=== PATIENT | male | born 1995 | race Caucasian/White ===

== ENCOUNTER 2017-01-30 13:53 | Inpatient (IN) | payer OTHER ==
[2017-01-30 21:59] VITALS: BMI 27.3
[2017-01-30] MEDS ORDERED: diazePAM 5 MG TABLET PO SCH (22:00)
--- NOTE | 2017-01-30 22:50 | HP ---
COWS - Scale Resting Pulse: 0= [place] 80 or Below Sweatin= Chills/Flushing Restless Observation: 3= Extraneous Movement Pupil Size: 0= Normal to Room Light Bone or Joint Aches: 2= Severe Diffuse Aches Runny Nose/ Eye Tearin= None GI Upset > 30mins: 1= Stomach Cramp Tremor Observation: 2= Slight Tremor Visible Yawning Observation: 0= None Anxiety or Irritability: 4=Extreme Anxiety Goose Flesh Skin: 0=Smooth Skin COWS Score: 13 Admission ROS [facility] Chief Complaint: Heroin withdrawal Allergies/Adverse Reactions: Allergies Allergy/AdvReac Type Severity Reaction Status Date / Time Penicillins Allergy Severe Verified 09/04/15 10:11 History of Present Illness: 21 years old male with hx of heroin, cocaine and benzo dependence admitted for detox. Patient has been in previous detox in 09/2015. Denies significant period of sobriety. Exam Limitations: No Limitations - Ebola screening Have you traveled outside of the country in the last 21 days: No Have you had contact with anyone from an Ebola affected area: No Have you been sick,other than usual withdrawal symptoms: No Do you have a fever: No - Review of Systems Constitutional: Chills, Loss of Appetite, Changes in sleep EENT: reports: No Symptoms Reported Respiratory: reports: No Symptoms reported Cardiac: reports: No Symptoms Reported GI: reports: No Symptoms Reported : reports: No Symptoms Reported Musculoskeletal: reports: Joint Stiffness (Left hand injection site) Integumentary: reports: Flushing Neuro: reports: No Symptoms reported Endocrine: reports: No Symptoms Reported Hematology: reports: No Symptoms Reported Psychiatric: reports: Orientated x3, Anxious Other Systems: Reviewed and Negative Patient History - Patient Medical History Hx Anemia: No Hx Asthma: No Hx Chronic Obstructive Pulmonary Disease (COPD): No Hx Cancer: No Hx Cardiac Disorders: No Hx Congestive Heart Failure: No Hx Hypertension: No Hx Hypercholesterolemia: No Hx Pacemaker: No HX Cerebrovascular Accident: No Hx Seizures: No Hx Dementia: No Hx Diabetes: No Hx Gastrointestinal Disorders: No Hx Liver Disease: No Hx Genitourinary Disorders: No Hx Sexually Transmitted Disorders: No Hx Renal Disease (ESRD): No Hx Thyroid Disease: No Hx Human Immunodeficiency Virus (HIV): No (Denies) Hx Hepatitis C: No Hx Depression: No Hx Suicide Attempt: No Hx Bipolar Disorder: No Hx Schizophrenia: No - Patient Surgical History Past Surgical History: No - PPD History Date: 09/06/15 PPD to be Administered?: Yes - Smoking Cessation Smoking history: Current every day smoker Have you smoked in the past 12 months: Yes Aproximately how many cigarettes per day: 10 Cigars Per Day: 0 Hx Chewing Tobacco Use: No Initiated information on smoking cessation: Yes 'Breaking Loose' booklet given: 01/30/17 - Substance & Tx. History Hx Alcohol Use: No Hx Substance Use: Yes (Heroine, Xanax, Cocaine) Substance Use Type: Cocaine, Heroin Hx Substance Use Treatment: Yes ([facility] 09/2015) Family Disease History - Family Disease History Family Disease History: CA: Mother (Abdominal Ca), Other: Father (ALS) Admission Physical Exam [facility] - Vital Signs Vital Signs: Vital Signs - 24 hr 01/30/17 21:57 Temperature 99.6 F Pulse Rate 76 Respiratory 18 Rate Blood Pressure 108/58 - Physical General Appearance: Yes: Appropriately Dressed, Moderate Distress HEENTM: Yes: EOMI, Normal Voice, GINO Respiratory: Yes: Lungs Clear, Normal Breath Sounds, No Respiratory Distress Neck: Yes: Supple Breast: Yes: Breast Exam Deferred Cardiology: Yes: Regular Rhythm, Regular Rate, S1, S2 Abdominal: Yes: Normal Bowel Sounds, Flat, Soft Genitourinary: Yes: Within Normal Limits Back: Yes: Normal Inspection Musculoskeletal: Yes: full range of Motion, Joint Stiffness, Muscle weakness Extremities: Yes: Tremors Neurological: Yes: Fully Oriented, Alert, Normal Response Integumentary: Yes: Warm Lymphatic: Yes: Within Normal Limits - Diagnostic (1) Anxiety Current Visit: Yes Status: Acute (2) Uncomplicated sedative, hypnotic or anxiolytic withdrawal Current Visit: Yes Status: Acute (3) Nicotine dependence Current Visit: Yes Status: Acute Qualifiers: Nicotine product type: cigarettes Substance use status: uncomplicated Qualified Code(s): F17.210 - Nicotine dependence, cigarettes, uncomplicated; F17.210 - Nicotine dependence, cigarettes, uncomplicated Cleared for Admission S - Detox or Rehab [facility] Level of Care: Medically Managed Detox Regimen/Protocol: Methadone/Valium S Breath Alcohol Content Breath Alcohol Content: 0 Urine Drug Screen - Results Drug Screen Negative: No Urine Drug Screen Results: TRISTIAN-Cocaine, OPI-Opiates, BZO-Benzodiazepines
[2017-01-30] MEDS ORDERED: METHADONE HCL 10 MG TABLET (FOR DETOX USE ONLY) PO ONE ×2 (23:00→23:07)
[2017-01-30] MEDS ORDERED: diazePAM 5 MG TABLET PO PRN (23:07)
[2017-01-30] MEDS ORDERED: diazePAM 5 MG TABLET PO ONE (23:07)
[2017-01-30] MEDS ORDERED: IBUPROFEN 400 MG TABLET (FP) PO PRN (23:15)
[2017-01-30] MEDS ORDERED: MENTHOL/PHENOL 1 EACH UD MM PRN (23:15)
[2017-01-30] MEDS ORDERED: MAGNESIUM HYDROX 2400MG/30ML ORAL SUSPENSION 30 ML CUP PO PRN (23:15)
[2017-01-30] MEDS ORDERED: ACETAMINOPHEN 325 MG TABLET (FP) PO PRN (23:15)
[2017-01-30] MEDS ORDERED: LOPERAMIDE HCL 2 MG CAPSULE PO PRN (23:15)
[2017-01-30] MEDS ORDERED: P-EPHED 60MG/TRIPROLIDI 2.5MG TABLET PO PRN (23:15)
[2017-01-30] MEDS ORDERED: MAGNESIUM CITRATE 300 ML BOTTLE PO PRN (23:15)
[2017-01-30] MEDS ORDERED: guaiFENesin/D-METHORPHAN HB 10 ML UNIT-DOSE CUPS PO PRN (23:15)
[2017-01-30] MEDS ORDERED: MAG HYDROX/AL HYDROX/SIMETH 30 ML UNIT-DOSE CUP PO PRN (23:15)
[2017-01-31] MEDS ORDERED: diazePAM 5 MG TABLET PO ONE (01:26)
[2017-01-31] MEDS ORDERED: METHADONE HCL 10 MG TABLET (FOR DETOX USE ONLY) PO ONE ×3 (01:26→23:00)
[2017-01-31] MEDS: diazePAM 5 MG TABLET PO SCH ×3 (06:26→22:11)
[2017-01-31 09:48] LABS: MCHC 33.1 g/dl (32.0-35.9); MEAN CELL VOLUME 87.5 fl (80-96); MEAN PLT VOLUME 10.2 fl (7.5-11.1); PLATELET COUNT 173 K/MM3 (134-434); RDW 14.2 % (11.9-15.9); WHITE BLOOD COUNT 6.7 K/mm3 (4.0-10.0)
[2017-01-31] MEDS ORDERED: METHADONE HCL 10 MG TABLET (FOR DETOX USE ONLY) PO SCH (10:00)
[2017-01-31] MEDS: diazePAM 5 MG TABLET PO PRN ×2 (10:07→17:46)
[2017-01-31] MEDS: PRENATAL VITAMINS W/ FOLIC ACID TABLET (FP) PO SCH (10:07)
[2017-01-31 10:15] LABS: ALBUMIN 3.6 g/dl (3.4-5.0); ALK PHOS 81 U/L (45-117); ANION GAP 8 (8-16); BILIRUBIN,TOTAL 0.3 mg/dL (0.2-1.0); CALCIUM 8.2 mg/dL (8.5-10.1); CO2 28 mmol/L (21-32); CREATININE 0.9 mg/dL (0.7-1.3); GLUCOSE,RANDOM 71 mg/dL (74-106); SGOT/AST 12 U/L (15-37); SGPT/ALT 20 U/L (12-78); TOT PROT 6.8 g/dl (6.4-8.2)
[2017-01-31 10:25] LABS: HIV 1 & 2 AB NEGATIVE
[2017-01-31 10:26] LABS: HIV 1 AGp24 NEGATIVE
--- NOTE | 2017-01-31 10:31 | PN ---
[facility] CIWA - CIWA Score Nausea/Vomitin-No Nausea/No Vomiting Muscle Tremors: 4-Moderate,w/Arms Extend Anxiety: 4-Mod. Anxious/Guarded Agitation: 4-Moderately Restless Paroxysmal Sweats: 1-Minimal Palms Moist Orientation: 0-Oriented Tacttile Disturbances: 3-Moderate Itch/Numb/Burn Auditory Disturbances: 0-None Visual Disturbances: 0-None Headache: 0-None Present CIWA-Ar Total Score: 16 S COWS - Scale Resting Pulse: 0= [place] 80 or Below Sweatin= No chills or Flushing Restless Observation: 3= Extraneous Movement Pupil Size: 0= Normal to Room Light Bone or Joint Aches: 4=Acute Joint/Muscle Pain Runny Nose/ Eye Tearin= None GI Upset > 30mins: 0= None Tremor Observation of Outstretched Hands: 1= Tremor [place], Not Seen Yawning Observation: 1= 1-2x During Session Anxiety or Irritability: 2=Irritable/Anxious Goose Flesh Skin: 0=Smooth Skin COWS Score: 11 [facility] Progress Note (SOAP) Subjective: ANXIETY,SWEATS,ALERT O X 3. OOB ABOUT IN THE UNIT. Objective: 01/31/17 10:29 Vital Signs 01/31/17 01/31/17 01/31/17 03:36 06:00 09:19 Temperature 96.6 F L 96.8 F L Pulse Rate 70 69 Respiratory 18 18 18 Rate Blood Pressure 101/49 99/63 Laboratory Last Values WBC 6.7 K/mm3 (4.0-10.0) 01/31/17 07:00 RBC 4.85 M/mm3 (4.00-5.60) 01/31/17 07:00 Hgb 14.1 GM/dL (11.7-16.9) 01/31/17 07:00 Hct 42.5 % (35.4-49) 01/31/17 07:00 MCV 87.5 fl (80-96) 01/31/17 07:00 MCH 29.0 pg (25.7-33.7) 01/31/17 07:00 MCHC 33.1 g/dl (32.0-35.9) 01/31/17 07:00 RDW 14.2 % (11.9-15.9) 01/31/17 07:00 Plt Count 173 K/MM3 (134-434) 01/31/17 07:00 MPV 10.2 fl (7.5-11.1) 01/31/17 07:00 RPR Titer Nonreactive (NONREACTIVE) 01/31/17 07:00 HIV 1&2 Antibody Screen Negative 01/31/17 07:00 HIV P24 Antigen Negative 01/31/17 07:00 Assessment: 01/31/17 10:30 WITHDRAWAL SX Plan: CONTINUE DETOX INCREASE PO FLUIDS.
[2017-01-31] MEDS ORDERED: FLU VACCINE QUAD 60 MCG/0.5 ML (MDV 17-18) IM ONE (12:00)
--- NOTE | 2017-01-31 13:43 | CONSULT ---
[facility] Psychiatric Consult - Data Date of interview: 01/31/17 Admission source: [facility] Identifying data: Second admission to [facility] for this 21 y/o male seeking detox treatment on for heroin,cocaine and benzodiazepine dependence.Patient is single without children,unemployed,homeless and deprived of financial assistance. Substance Abuse History: Confirmed by patient in this session. Smoking Cessation. Smoking history: Current every day smoker. Have you smoked in the past 12 months: Yes. Aproximately how many cigarettes per day: 10. Cigars Per Day: 0. Hx Chewing Tobacco Use: No. Initiated information on smoking cessation : Yes. 'Breaking Loose' booklet given: 01/30/17. - Substance & Tx. History. Hx Alcohol Use: No. Hx Substance Use: Yes (Heroine, Xanax, Cocaine). Substance Use Type: Cocaine, Heroin. Hx Substance Use Treatment: Yes ([facility] 2015) Medical History: Patient endorses good general health. Psychiatric History: Patient denies. Physical/Sexual Abuse/Trauma History: Denies. Additional Comment: Urine Drug Screen Results: TRISTIAN-Cocaine, OPI-Opiates, BZO- Benzodiazepines.Noted. Mental Status Exam - Mental Status Exam Alert and Oriented to: Time, Place, Person Cognitive Function: Good Patient Appearance: Well Groomed Mood: Hopeful, Euthymic Affect: Appropriate, Normal Range Patient Behavior: Fatigued, Cooperative Speech Pattern: Clear ([place]-speaking) Voice Loudness: Normal Thought Process: Intact, Goal Oriented Thought Disorder: Not Present Hallucinations: Denies Suicidal Ideation: Denies Homicidal Ideation: Denies Insight/Judgement: Poor Sleep: Well Appetite: Good Muscle strength/Tone: Normal Gait/Station: Normal Psychiatric Findings - Problem List ([place] 1, 2,3) (1) Opioid dependence with withdrawal Current Visit: Yes Status: Acute (2) Uncomplicated sedative, hypnotic or anxiolytic withdrawal Current Visit: Yes Status: Acute (3) Nicotine dependence Current Visit: Yes Status: Acute Qualifiers: Nicotine product type: cigarettes Substance use status: uncomplicated Qualified Code(s): F17.210 - Nicotine dependence, cigarettes, uncomplicated; F17.210 - Nicotine dependence, cigarettes, uncomplicated (4) Cocaine dependence Current Visit: Yes Status: Acute - Initial Treatment Plan Initial Treatment Plan: Psychoeducation.Detoxification.Observation.
[2017-01-31 16:50] LABS: URINE APPEARANCE SLCLOUDY; URINE BILIRUBIN NEGATIVE (NEGATIVE); URINE BLOOD NEGATIVE (NEGATIVE); URINE COLOR DKYELLOW; URINE GLUCOSE (UA) NEGATIVE (NEGATIVE); URINE KETONE NEGATIVE (NEGATIVE); URINE NITRITE NEGATIVE (NEGATIVE); URINE PROTEIN NEGATIVE (NEGATIVE); URINE UROBILINOGEN 4.0 E.U/dl mg/dL (0.2-1.0)
[2017-01-31 18:18] LABS: URINE LEUK ESTERASE Negative (NEGATIVE)
[2017-01-31] MEDS: THIAMINE HCL 100 MG TABLET (FP) PO SCH (22:11)
[2017-01-31] MEDS: diphenhydrAMINE HCL 50 MG CAPSULE PO PRN (23:37)
[2017-02-01] MEDS: diazePAM 5 MG TABLET PO SCH ×3 (05:26→22:14)
[2017-02-01] MEDS ORDERED: diazePAM 5 MG TABLET PO SCH (10:00)
[2017-02-01] MEDS ORDERED: METHADONE HCL 10 MG TABLET (FOR DETOX USE ONLY) PO SCH (10:00)
[2017-02-01] MEDS ORDERED: METHADONE HCL 5 MG TABLET (FOR DETOX USE ONLY) PO SCH (10:00)
[2017-02-01] MEDS: PRENATAL VITAMINS W/ FOLIC ACID TABLET (FP) PO SCH (10:10)
--- NOTE | 2017-02-01 10:32 | PN ---
[facility] CIWA - CIWA Score Nausea/Vomitin-No Nausea/No Vomiting Muscle Tremors: 4-Moderate,w/Arms Extend Anxiety: 4-Mod. Anxious/Guarded Agitation: 4-Moderately Restless Paroxysmal Sweats: 1-Minimal Palms Moist Orientation: 0-Oriented Tacttile Disturbances: 3-Moderate Itch/Numb/Burn Auditory Disturbances: 0-None Visual Disturbances: 0-None Headache: 0-None Present CIWA-Ar Total Score: 16 S COWS - Scale Resting Pulse: 0= [place] 80 or Below Sweatin= Chills/Flushing Restless Observation: 3= Extraneous Movement Pupil Size: 0= Normal to Room Light Bone or Joint Aches: 1= Mild Discomfort Runny Nose/ Eye Tearin= Runny Nose/Eyes GI Upset > 30mins: 1= Stomach Cramp Tremor Observation of Outstretched Hands: 2= Slight Tremor Visible Yawning Observation: 1= 1-2x During Session Anxiety or Irritability: 2=Irritable/Anxious Goose Flesh Skin: 0=Smooth Skin COWS Score: 13 S Progress Note (SOAP) Subjective: SLIGHT ANXIETY. ALERT O X 3. PT REFUSED METHADONE 20 MG PO THIS MORNING. Objective: 02/01/17 10:35 Vital Signs Temperature 96.2 F L 02/01/17 09:16 Pulse Rate 78 02/01/17 09:16 Respiratory Rate 18 02/01/17 09:16 Blood Pressure 97/54 02/01/17 09:16 O2 Sat by Pulse Oximetry (%) Laboratory Last Values WBC 6.7 K/mm3 (4.0-10.0) 01/31/17 07:00 RBC 4.85 M/mm3 (4.00-5.60) 01/31/17 07:00 Hgb 14.1 GM/dL (11.7-16.9) 01/31/17 07:00 Hct 42.5 % (35.4-49) 01/31/17 07:00 MCV 87.5 fl (80-96) 01/31/17 07:00 MCH 29.0 pg (25.7-33.7) 01/31/17 07:00 MCHC 33.1 g/dl (32.0-35.9) 01/31/17 07:00 RDW 14.2 % (11.9-15.9) 01/31/17 07:00 Plt Count 173 K/MM3 (134-434) 01/31/17 07:00 MPV 10.2 fl (7.5-11.1) 01/31/17 07:00 Sodium 142 mmol/L (136-145) 01/31/17 07:00 Potassium 3.9 mmol/L (3.5-5.1) 01/31/17 07:00 Chloride 106 mmol/L (98-107) 01/31/17 07:00 Carbon Dioxide 28 mmol/L (21-32) 01/31/17 07:00 Anion Gap 8 (8-16) 01/31/17 07:00 BUN 14 mg/dL (7-18) 01/31/17 07:00 Creatinine 0.9 mg/dL (0.7-1.3) 01/31/17 07:00 Creat Clearance w eGFR > 60 (>60) 01/31/17 07:00 Random Glucose 71 mg/dL (74-106) L 01/31/17 07:00 Calcium 8.2 mg/dL (8.5-10.1) L 01/31/17 07:00 Total Bilirubin 0.3 mg/dL (0.2-1.0) D 01/31/17 07:00 AST 12 U/L (15-37) L 01/31/17 07:00 ALT 20 U/L (12-78) 01/31/17 07:00 Alkaline Phosphatase 81 U/L (45-117) 01/31/17 07:00 Total Protein 6.8 g/dl (6.4-8.2) 01/31/17 07:00 Albumin 3.6 g/dl (3.4-5.0) 01/31/17 07:00 Urine Color Dkyellow 01/31/17 15:36 Urine Appearance Slcloudy 01/31/17 15:36 Urine pH 5.0 (5.0-8.0) 01/31/17 15:36 Ur Specific [place] 1.025 (1.005-1.025) 01/31/17 15:36 Urine Protein Negative (NEGATIVE) 01/31/17 15:36 Urine Glucose (UA) Negative (NEGATIVE) 01/31/17 15:36 Urine Ketones Negative (NEGATIVE) 01/31/17 15:36 Urine Blood Negative (NEGATIVE) 01/31/17 15:36 Urine Nitrite Negative (NEGATIVE) 01/31/17 15:36 Urine Bilirubin Negative (NEGATIVE) 01/31/17 15:36 Urine Urobilinogen 4.0 e.u/dl mg/dL (0.2-1.0) 01/31/17 15:36 Ur Leukocyte Esterase Negative (NEGATIVE) 01/31/17 15:36 RPR Titer Nonreactive (NONREACTIVE) 01/31/17 07:00 HIV 1&2 Antibody Screen Negative 01/31/17 07:00 HIV P24 Antigen Negative 01/31/17 07:00 Assessment: 02/01/17 10:35 MILD WITHDRAWAL SX Plan: CONTINUE DETOX MONITOR PT.
[2017-02-01] MEDS: diazePAM 5 MG TABLET PO PRN (18:48)
[2017-02-01] MEDS: THIAMINE HCL 100 MG TABLET (FP) PO SCH (22:14)
[2017-02-01] MEDS: diphenhydrAMINE HCL 50 MG CAPSULE PO PRN (22:15)
[2017-02-02] MEDS: diazePAM 5 MG TABLET PO PRN ×3 (01:42→17:34)
--- NOTE | 2017-02-02 10:07 | PN ---
S Progress Note (SOAP) Subjective: ROUNDED WITH PT IN BED. SLIGHTLY SLEEPY BUT REPORTS FATIGUE AND SAYS HE SLEPT WELL LAST NIGHT. Objective: 02/02/17 10:07 Vital Signs Temperature 97.0 F L 02/02/17 09:38 Pulse Rate 85 02/02/17 09:38 Respiratory Rate 18 02/02/17 09:38 Blood Pressure 116/67 02/02/17 09:38 O2 Sat by Pulse Oximetry (%) Laboratory Last Values WBC 6.7 K/mm3 (4.0-10.0) 01/31/17 07:00 RBC 4.85 M/mm3 (4.00-5.60) 01/31/17 07:00 Hgb 14.1 GM/dL (11.7-16.9) 01/31/17 07:00 Hct 42.5 % (35.4-49) 01/31/17 07:00 MCV 87.5 fl (80-96) 01/31/17 07:00 MCH 29.0 pg (25.7-33.7) 01/31/17 07:00 MCHC 33.1 g/dl (32.0-35.9) 01/31/17 07:00 RDW 14.2 % (11.9-15.9) 01/31/17 07:00 Plt Count 173 K/MM3 (134-434) 01/31/17 07:00 MPV 10.2 fl (7.5-11.1) 01/31/17 07:00 Sodium 142 mmol/L (136-145) 01/31/17 07:00 Potassium 3.9 mmol/L (3.5-5.1) 01/31/17 07:00 Chloride 106 mmol/L (98-107) 01/31/17 07:00 Carbon Dioxide 28 mmol/L (21-32) 01/31/17 07:00 Anion Gap 8 (8-16) 01/31/17 07:00 BUN 14 mg/dL (7-18) 01/31/17 07:00 Creatinine 0.9 mg/dL (0.7-1.3) 01/31/17 07:00 Creat Clearance w eGFR > 60 (>60) 01/31/17 07:00 Random Glucose 71 mg/dL (74-106) L 01/31/17 07:00 Calcium 8.2 mg/dL (8.5-10.1) L 01/31/17 07:00 Total Bilirubin 0.3 mg/dL (0.2-1.0) D 01/31/17 07:00 AST 12 U/L (15-37) L 01/31/17 07:00 ALT 20 U/L (12-78) 01/31/17 07:00 Alkaline Phosphatase 81 U/L (45-117) 01/31/17 07:00 Total Protein 6.8 g/dl (6.4-8.2) 01/31/17 07:00 Albumin 3.6 g/dl (3.4-5.0) 01/31/17 07:00 Urine Color Dkyellow 01/31/17 15:36 Urine Appearance Slcloudy 01/31/17 15:36 Urine pH 5.0 (5.0-8.0) 01/31/17 15:36 Ur Specific [place] 1.025 (1.005-1.025) 01/31/17 15:36 Urine Protein Negative (NEGATIVE) 01/31/17 15:36 Urine Glucose (UA) Negative (NEGATIVE) 01/31/17 15:36 Urine Ketones Negative (NEGATIVE) 01/31/17 15:36 Urine Blood Negative (NEGATIVE) 01/31/17 15:36 Urine Nitrite Negative (NEGATIVE) 01/31/17 15:36 Urine Bilirubin Negative (NEGATIVE) 01/31/17 15:36 Urine Urobilinogen 4.0 e.u/dl mg/dL (0.2-1.0) 01/31/17 15:36 Ur Leukocyte Esterase Negative (NEGATIVE) 01/31/17 15:36 RPR Titer Nonreactive (NONREACTIVE) 01/31/17 07:00 HIV 1&2 Antibody Screen Negative 01/31/17 07:00 HIV P24 Antigen Negative 01/31/17 07:00 Assessment: 02/02/17 10:08 SLIGHT WITHDRAWAL SX Plan: CONTINUE DETOX
[2017-02-02] MEDS: diazePAM 5 MG TABLET PO SCH ×2 (10:16→22:23)
[2017-02-02] MEDS: METHADONE HCL 5 MG TABLET (FOR DETOX USE ONLY) PO SCH (10:16)
[2017-02-02] MEDS: PRENATAL VITAMINS W/ FOLIC ACID TABLET (FP) PO SCH (10:16)
--- NOTE | 2017-02-02 13:08 | EKG ---
Test Reason : Blood Pressure : / mmHG Vent. Rate : 059 BPM Atrial Rate : 059 BPM P-R Int : 192 ms QRS Dur : 096 ms QT Int : 396 ms P-R-T Axes : 068 042 049 degrees QTc Int : 392 ms SINUS BRADYCARDIA WITH MARKED SINUS ARRHYTHMIA OTHERWISE NORMAL ECG NO PREVIOUS ECGS AVAILABLE Confirmed by MIRANDA MONTEMAYOR, WILLI ([id number]) on 02/02/2017 1:08:25 PM Referred By: Confirmed By:WILLI JEAN MD
[2017-02-02] MEDS: diphenhydrAMINE HCL 50 MG CAPSULE PO PRN (22:23)
[2017-02-02] MEDS: THIAMINE HCL 100 MG TABLET (FP) PO SCH (22:23)
[2017-02-03] MEDS ORDERED: METHADONE HCL 10 MG TABLET (FOR DETOX USE ONLY) PO SCH (10:00)
[2017-02-03] MEDS ORDERED: diazePAM 5 MG TABLET PO SCH (10:00)
[2017-02-03] MEDS: diazePAM 5 MG TABLET PO SCH ×2 (10:22→22:12)
[2017-02-03] MEDS: METHADONE HCL 5 MG TABLET (FOR DETOX USE ONLY) PO SCH (10:22)
[2017-02-03] MEDS: PRENATAL VITAMINS W/ FOLIC ACID TABLET (FP) PO SCH (10:22)
--- NOTE | 2017-02-03 11:03 | PN ---
[facility] Progress Note (SOAP) Subjective: RECIEVED PT IN BED AND PT APPEARS VERY SLEEPY AND REPORTS TIREDNESS. OOB NEEDED. Objective: 02/03/17 11:03 Vital Signs Temperature 97.7 F 02/03/17 06:34 Pulse Rate 63 02/03/17 06:34 Respiratory Rate 18 02/03/17 06:34 Blood Pressure 106/48 02/03/17 06:34 O2 Sat by Pulse Oximetry (%) Laboratory Last Values WBC 6.7 K/mm3 (4.0-10.0) 01/31/17 07:00 RBC 4.85 M/mm3 (4.00-5.60) 01/31/17 07:00 Hgb 14.1 GM/dL (11.7-16.9) 01/31/17 07:00 Hct 42.5 % (35.4-49) 01/31/17 07:00 MCV 87.5 fl (80-96) 01/31/17 07:00 MCH 29.0 pg (25.7-33.7) 01/31/17 07:00 MCHC 33.1 g/dl (32.0-35.9) 01/31/17 07:00 RDW 14.2 % (11.9-15.9) 01/31/17 07:00 Plt Count 173 K/MM3 (134-434) 01/31/17 07:00 MPV 10.2 fl (7.5-11.1) 01/31/17 07:00 Sodium 142 mmol/L (136-145) 01/31/17 07:00 Potassium 3.9 mmol/L (3.5-5.1) 01/31/17 07:00 Chloride 106 mmol/L (98-107) 01/31/17 07:00 Carbon Dioxide 28 mmol/L (21-32) 01/31/17 07:00 Anion Gap 8 (8-16) 01/31/17 07:00 BUN 14 mg/dL (7-18) 01/31/17 07:00 Creatinine 0.9 mg/dL (0.7-1.3) 01/31/17 07:00 Creat Clearance w eGFR > 60 (>60) 01/31/17 07:00 Random Glucose 71 mg/dL (74-106) L 01/31/17 07:00 Calcium 8.2 mg/dL (8.5-10.1) L 01/31/17 07:00 Total Bilirubin 0.3 mg/dL (0.2-1.0) D 01/31/17 07:00 AST 12 U/L (15-37) L 01/31/17 07:00 ALT 20 U/L (12-78) 01/31/17 07:00 Alkaline Phosphatase 81 U/L (45-117) 01/31/17 07:00 Total Protein 6.8 g/dl (6.4-8.2) 01/31/17 07:00 Albumin 3.6 g/dl (3.4-5.0) 01/31/17 07:00 Urine Color Dkyellow 01/31/17 15:36 Urine Appearance Slcloudy 01/31/17 15:36 Urine pH 5.0 (5.0-8.0) 01/31/17 15:36 Ur Specific [place] 1.025 (1.005-1.025) 01/31/17 15:36 Urine Protein Negative (NEGATIVE) 01/31/17 15:36 Urine Glucose (UA) Negative (NEGATIVE) 01/31/17 15:36 Urine Ketones Negative (NEGATIVE) 01/31/17 15:36 Urine Blood Negative (NEGATIVE) 01/31/17 15:36 Urine Nitrite Negative (NEGATIVE) 01/31/17 15:36 Urine Bilirubin Negative (NEGATIVE) 01/31/17 15:36 Urine Urobilinogen 4.0 e.u/dl mg/dL (0.2-1.0) 01/31/17 15:36 Ur Leukocyte Esterase Negative (NEGATIVE) 01/31/17 15:36 RPR Titer Nonreactive (NONREACTIVE) 01/31/17 07:00 HIV 1&2 Antibody Screen Negative 01/31/17 07:00 HIV P24 Antigen Negative 01/31/17 07:00 Assessment: 02/03/17 11:03 WITHDRAWAL SX Plan: CONTINUE DETOX ENCOURAGED PT TO INCREASE PO FLUIDS.
[2017-02-03] MEDS ORDERED: hydrOXYzine PAMOATE 50 MG CAPSULE (FP) PO PRN (14:28)
--- NOTE | 2017-02-03 14:33 | PN ---
[facility] Progress Note Note: Psychiatry Attending's note : Seen for complaint of anxiety. Patient is visible on unit.Ambulatory. Apprehensive over discontinuation of diazepam. Mr Fagan is reassured.Agrees to take vistaril. Side effects/benefits discussed with the patient. Plan : Vistaril 50 mg po q 6 hours prn. Discussed with nursing staff.
[2017-02-03] MEDS: hydrOXYzine PAMOATE 50 MG CAPSULE (FP) PO PRN (20:25)
[2017-02-03] MEDS: THIAMINE HCL 100 MG TABLET (FP) PO SCH (22:11)
[2017-02-03] MEDS: diphenhydrAMINE HCL 50 MG CAPSULE PO PRN (22:13)
[2017-02-04] MEDS: hydrOXYzine PAMOATE 50 MG CAPSULE (FP) PO PRN ×5 (03:13→21:53)
[2017-02-04] MEDS ORDERED: METHADONE HCL 5 MG TABLET (FOR DETOX USE ONLY) PO SCH (06:00)
[2017-02-04] MEDS ORDERED: METHADONE HCL 10 MG TABLET (FOR DETOX USE ONLY) PO SCH (10:00)
[2017-02-04] MEDS ORDERED: diazePAM 5 MG TABLET PO SCH (10:00)
[2017-02-04] MEDS: PRENATAL VITAMINS W/ FOLIC ACID TABLET (FP) PO SCH (10:08)
--- NOTE | 2017-02-04 13:27 | PN ---
[facility] Progress Note (SOAP) Subjective: Sweating,restless Objective: 02/04/17 13:27 Vital Signs - 8 hr 02/04/17 02/04/17 06:00 09:26 Temperature 98.1 F 98.7 F Pulse Rate 59 L 64 Respiratory 18 18 Rate Blood Pressure 97/43 108/66 Laboratory Last Values WBC 6.7 K/mm3 (4.0-10.0) 01/31/17 07:00 RBC 4.85 M/mm3 (4.00-5.60) 01/31/17 07:00 Hgb 14.1 GM/dL (11.7-16.9) 01/31/17 07:00 Hct 42.5 % (35.4-49) 01/31/17 07:00 MCV 87.5 fl (80-96) 01/31/17 07:00 MCH 29.0 pg (25.7-33.7) 01/31/17 07:00 MCHC 33.1 g/dl (32.0-35.9) 01/31/17 07:00 RDW 14.2 % (11.9-15.9) 01/31/17 07:00 Plt Count 173 K/MM3 (134-434) 01/31/17 07:00 MPV 10.2 fl (7.5-11.1) 01/31/17 07:00 Sodium 142 mmol/L (136-145) 01/31/17 07:00 Potassium 3.9 mmol/L (3.5-5.1) 01/31/17 07:00 Chloride 106 mmol/L (98-107) 01/31/17 07:00 Carbon Dioxide 28 mmol/L (21-32) 01/31/17 07:00 Anion Gap 8 (8-16) 01/31/17 07:00 BUN 14 mg/dL (7-18) 01/31/17 07:00 Creatinine 0.9 mg/dL (0.7-1.3) 01/31/17 07:00 Creat Clearance w eGFR > 60 (>60) 01/31/17 07:00 Random Glucose 71 mg/dL (74-106) L 01/31/17 07:00 Calcium 8.2 mg/dL (8.5-10.1) L 01/31/17 07:00 Total Bilirubin 0.3 mg/dL (0.2-1.0) D 01/31/17 07:00 AST 12 U/L (15-37) L 01/31/17 07:00 ALT 20 U/L (12-78) 01/31/17 07:00 Alkaline Phosphatase 81 U/L (45-117) 01/31/17 07:00 Total Protein 6.8 g/dl (6.4-8.2) 01/31/17 07:00 Albumin 3.6 g/dl (3.4-5.0) 01/31/17 07:00 Urine Color Dkyellow 01/31/17 15:36 Urine Appearance Slcloudy 01/31/17 15:36 Urine pH 5.0 (5.0-8.0) 01/31/17 15:36 Ur Specific [place] 1.025 (1.005-1.025) 01/31/17 15:36 Urine Protein Negative (NEGATIVE) 01/31/17 15:36 Urine Glucose (UA) Negative (NEGATIVE) 01/31/17 15:36 Urine Ketones Negative (NEGATIVE) 01/31/17 15:36 Urine Blood Negative (NEGATIVE) 01/31/17 15:36 Urine Nitrite Negative (NEGATIVE) 01/31/17 15:36 Urine Bilirubin Negative (NEGATIVE) 01/31/17 15:36 Urine Urobilinogen 4.0 e.u/dl mg/dL (0.2-1.0) 01/31/17 15:36 Ur Leukocyte Esterase Negative (NEGATIVE) 01/31/17 15:36 RPR Titer Nonreactive (NONREACTIVE) 01/31/17 07:00 HIV 1&2 Antibody Screen Negative 01/31/17 07:00 HIV P24 Antigen Negative 01/31/17 07:00 labs noted Assessment: 02/04/17 13:27 Withdrawal sx. Plan: Continue detox
[2017-02-04] MEDS: THIAMINE HCL 100 MG TABLET (FP) PO SCH (21:53)
[2017-02-05] MEDS: hydrOXYzine PAMOATE 50 MG CAPSULE (FP) PO PRN ×2 (04:23→09:41)
[2017-02-05] MEDS ORDERED: METHADONE HCL 5 MG TABLET (FOR DETOX USE ONLY) PO SCH (06:00)
[2017-02-05 09:27] VITALS: BP 117/66; PULSE 77; TEMP 97.9
[2017-02-05] MEDS: PRENATAL VITAMINS W/ FOLIC ACID TABLET (FP) PO SCH (10:09)
--- NOTE | 2017-02-05 14:07 | DS ---
[facility] Detox Discharge Summary Admission Date: 01/31/17 Discharge Date: 02/05/17 - History Present History: Alcohol Dependence, Cocaine Dependence Pertinent Past History: Denies - Physical Exam Results Vital Signs: Vital Signs Temperature 97.9 F 02/05/17 09:27 Pulse Rate 77 02/05/17 09:27 Respiratory Rate 18 02/05/17 09:27 Blood Pressure 117/66 02/05/17 09:27 O2 Sat by Pulse Oximetry (%) Pertinent Admission Physical Exam Findings: Withdrawal symptoms Laboratory Tests 01/31/17 01/31/17 01/31/17 07:00 07:00 07:00 WBC 6.7 RBC 4.85 Hgb 14.1 Hct 42.5 MCV 87.5 MCH 29.0 MCHC 33.1 RDW 14.2 Plt Count 173 MPV 10.2 Sodium 142 Potassium 3.9 Chloride 106 Carbon Dioxide 28 Anion Gap 8 BUN 14 Creatinine 0.9 Creat Clearance w eGFR > 60 Random Glucose 71 L Calcium 8.2 L Total Bilirubin 0.3 D AST 12 L ALT 20 Alkaline Phosphatase 81 Total Protein 6.8 Albumin 3.6 Urine Color Urine Appearance Urine pH Ur Specific [place] Urine Protein Urine Glucose (UA) Urine Ketones Urine Blood Urine Nitrite Urine Bilirubin Urine Urobilinogen Ur Leukocyte Esterase RPR Titer Nonreactive HIV 1&2 Antibody Screen HIV P24 Antigen 01/31/17 01/31/17 07:00 15:36 WBC RBC Hgb Hct MCV MCH MCHC RDW Plt Count MPV Sodium Potassium Chloride Carbon Dioxide Anion Gap BUN Creatinine Creat Clearance w eGFR Random Glucose Calcium Total Bilirubin AST ALT Alkaline Phosphatase Total Protein Albumin Urine Color Dkyellow Urine Appearance Slcloudy Urine pH 5.0 Ur Specific [place] 1.025 Urine Protein Negative Urine Glucose (UA) Negative Urine Ketones Negative Urine Blood Negative Urine Nitrite Negative Urine Bilirubin Negative Urine Urobilinogen 4.0 e.u/dl Ur Leukocyte Esterase Negative RPR Titer HIV 1&2 Antibody Screen Negative HIV P24 Antigen Negative Labs noted - Treatment Hospital Course: Detox Protocol Followed, Detoxed Safely, Responded well, Discharged Condition Good - Medication Discharge Medications: Ambulatory Orders NK [No Known Home Medication] 09/04/15 - Diagnosis (1) Anxiety Status: Chronic (2) Cocaine dependence Status: Chronic (3) Nicotine dependence Status: Chronic Qualifiers: Nicotine product type: cigarettes Substance use status: uncomplicated Qualified Code(s): F17.210 - Nicotine dependence, cigarettes, uncomplicated; F17.210 - Nicotine dependence, cigarettes, uncomplicated (4) Opioid dependence with withdrawal Status: Chronic (5) Uncomplicated sedative, hypnotic or anxiolytic withdrawal Status: Acute - AMA Did Patient Leave Against Medical Advice: No (Follow up with your PCP in 1-2 weeks)
== END 2017-02-05 09:55 | disposition home or self-care (01) | DRG 773 ==
LOC: YASAS 13:53 → Y3N 01-31 00:06
PROVIDERS: ADMIT Internal Medicine; ATTEND Internal Medicine
PROC: HZ2ZZZZ Detoxification Services for Substance Abuse Treatment (ICD-10-PCS; principal; 2017-01-31)
DX: F11.23 Opioid dependence with withdrawal (principal); F13.230 Sedative, hypnotic or anxiolytic dependence with withdrawal, uncomplicated; F14.20 Cocaine dependence, uncomplicated; F17.210 Nicotine dependence, cigarettes, uncomplicated; F41.9 Anxiety disorder, unspecified
CPT/HCPCS: 36415; 80053; 81003; 85027; 86593; 87389; 93005; 93010

== ENCOUNTER 2019-02-11 09:32 | Inpatient (IN) | payer OTHER ==
[2019-02-11 09:50] VITALS: BMI 33.3
--- NOTE | 2019-02-11 10:13 | HP ---
COWS - Scale Resting Pulse: 2= [place] 101-120 Sweatin=Flushed/Facial Moisture Restless Observation: 1= Difficult to Sit Still Pupil Size: 1= Pupils >than Normal Bone or Joint Aches: 1= Mild Discomfort Runny Nose/ Eye Tearin= Nasal Congestion GI Upset > 30mins: 1= Stomach Cramp Tremor Observation: 1= Tremor [place], Not Seen Yawning Observation: 1= 1-2x During Session Anxiety or Irritability: 1=Feels Anxious/Irritable Goose Flesh Skin: 0=Smooth Skin (just used this morning 1 bag of heroin at 7: 30AM Is appropriate for detox) COWS Score: 12 CIWA Score - Admission Criteria OASAS Guidelines: Admission for Medically Managed Detox: Requires at least one of the followin. CIWA greater than 12 2. Seizures within the past 24 hours 3. Delirium tremens within the past 24 hours 4. Hallucinations within the past 24 hours 5. Acute intervention needed for co occurring medical disorder 6. Acute intervention needed for co occurring psychiatric disorder 7. Severe withdrawal that cannot be handled at a lower level of care (continued vomiting, continued diarrhea, abnormal vital signs) requiring intravenous medication and/or fluids 8. Admitting History and Physical - Admission Chief Complaint: " I want to get clean. I'm tired of using and being dependent. I now have a child and want to stop." History of Present Illness: 23 year male with opioid dependence in early withdrawals. He has been using since the age of 21 and now has progressed to 1 bundle of heroin intranasally, last used 7:30AM this morning. He did over dose 1 year ago requiring narcan and hospitalization. He does not carry any narcan. He has last here in detox ago more than one year ago. He relapsed almost immediately after. However, at that time he was using pills from the streets. He denies other substances of use: no cocaine, K2, amphetamines or marijuana All PCN+ PMH: None PSurg: ;None FHX: Mother alive in in good health, father from ALS 1 brother in good health 1 sister in good health. Psych: None Limitations to Obtaining History: No Limitations - Past Surgical History Past Surgical History: Yes: None - Advance Directives Advance Directives: No: Living Will, Health Care Proxy, DNR - Smoking History Smoking history: Current every day smoker Have you smoked in the past 12 months: Yes Aproximately how many cigarettes per day: 10 - Alcohol/Substance Use Hx Alcohol Use: No History of Substance Use: reports: Heroin Date of Last Use: 02/11/19 - Social History Usual Living Arrangement: Yes: With Spouse Do you think of yourself as: Straight/Heterosexual ADL: Independent History of Recent Travel: No Admission ROS [facility] - HPI Chief Complaint: " I want to get clean. I'm tired of using and being dependent. I now have a child and want to stop." Allergies/Adverse Reactions: Allergies Allergy/AdvReac Type Severity Reaction Status Date / Time Penicillins Allergy Severe Verified 02/11/19 09:42 History of Present Illness: 23 year male with opioid dependence in early withdrawals. He has been using since the age of 21 and now has progressed to 1 bundle of heroin intranasally, last used 7:30AM this morning. He did over dose 1 year ago requiring narcan and hospitalization. He does not carry any narcan. He has last here in detox ago more than one year ago. He relapsed almost immediately after. However, at that time he was using pills from the streets. He denies other substances of use: no cocaine, K2, amphetamines or marijuana All PCN+ PMH: None PSurg: ;None FHX: Mother alive in in good health, father from ALS 1 brother in good health 1 sister in good health. Psych: None - Ebola screening Have you traveled outside of the country in the last 21 days: No Have you had contact with anyone from an Ebola affected area: No Have you been sick,other than usual withdrawal symptoms: No Do you have a fever: No - Review of Systems Constitutional: Chills, Loss of Appetite EENT: reports: No Symptoms Reported Respiratory: reports: No Symptoms reported Cardiac: reports: No Symptoms Reported GI: reports: Abdominal cramping : reports: No Symptoms Reported Musculoskeletal: reports: Back Pain Integumentary: reports: No Symptoms Reported Neuro: reports: No Symptoms reported Endocrine: reports: No Symptoms Reported Hematology: reports: No Symptoms Reported Psychiatric: reports: No Sypmtoms Reported, Agitated, Anxious Other Systems: Reviewed and Negative Patient History - Patient Medical History Hx Anemia: No Hx Asthma: No Hx Chronic Obstructive Pulmonary Disease (COPD): No Hx Cancer: No Hx Cardiac Disorders: No Hx Congestive Heart Failure: No Hx Hypertension: No Hx Hypercholesterolemia: No Hx Pacemaker: No HX Cerebrovascular Accident: No Hx Seizures: No Hx Dementia: No Hx Diabetes: No Hx Gastrointestinal Disorders: No Hx Liver Disease: No Hx Genitourinary Disorders: No Hx Sexually Transmitted Disorders: No Hx Renal Disease (ESRD): No Hx Thyroid Disease: No Hx Human Immunodeficiency Virus (HIV): No (Denies) Hx Hepatitis C: No Hx Depression: No Hx Suicide Attempt: No Hx Bipolar Disorder: No Hx Schizophrenia: No - Patient Surgical History Past Surgical History: No - PPD History Previous Implant?: Yes Documented Results: Negative w/proof Implanted On Prior [facility] Admission?: Yes Date: 02/02/17 Results: negative PPD to be Administered?: Yes - Smoking Cessation Smoking history: Current every day smoker Have you smoked in the past 12 months: Yes Aproximately how many cigarettes per day: 10 Cigars Per Day: 0 Hx Chewing Tobacco Use: No Initiated information on smoking cessation: Yes 'Breaking Loose' booklet given: 02/11/19 - Substances abused Heroin Substance route: Inhalation Frequency: Daily Amount used: 1 bundle Age of first use: 21 Date of last use: 02/11/19 Admission Physical Exam [facility] - Vital Signs Vital Signs: Vital Signs - 24 hr 02/11/19 09:43 Temperature 97.3 F L Pulse Rate 72 Respiratory 18 Rate Blood Pressure 109/67 - Physical General Appearance: Yes: Mild Distress HEENTM: Yes: EOMI, Hearing grossly Normal, Normal ENT Inspection, Normocephalic , GINO, Pharynx Normal, Tm's normal Respiratory: Yes: Chest Non-Tender, Lungs Clear, Normal Breath Sounds, No Respiratory Distress, No Accessory Muscle Use Neck: Yes: No masses,lesions,Nodules, Supple, Trachea in good position Breast: Yes: Within Normal Limits Cardiology: Yes: Regular Rhythm, S1, S2, Tachycardia Abdominal: Yes: Non Tender, Flat, Soft, Increased Bowel Sounds Genitourinary: Yes: Within Normal Limits Back: Yes: Normal Inspection Musculoskeletal: Yes: full range of Motion, Gait Steady Extremities: Yes: Normal Capillary Refill, Normal Inspection, Normal Range of Motion, Non-Tender Neurological: Yes: lap polisher II-XII NML intact, Fully Oriented, Motor Strength 5/5, Normal Mood/Affect, Normal Response Integumentary: Yes: Normal Color, Warm Lymphatic: Yes: Within Normal Limits - Diagnostic (1) Nicotine dependence Current Visit: Yes Status: Chronic Qualifiers: Nicotine product type: cigarettes Substance use status: uncomplicated Qualified Code(s): F17.210 - Nicotine dependence, cigarettes, uncomplicated (2) Opioid dependence with withdrawal Current Visit: Yes Status: Chronic Screened but not Admitted - Documentation of Visit Screened but not Admitted: No Breathalyzer - Breathalyzer Breathalyzer: 0 Inpatient Rehab Admission - Rehab Decision to Admit Inpatient rehab admission?: No
[2019-02-11] MEDS ORDERED: BISMUTH SUBSALICYLATE 524 MG/30 ML UD PO PRN (10:18)
[2019-02-11] MEDS ORDERED: ACETAMINOPHEN 325 MG TABLET (FP) PO PRN ×2 (10:18)
[2019-02-11] MEDS ORDERED: MAG HYDROX/AL HYDROX/SIMETH 30 ML UNIT-DOSE CUP PO PRN (10:18)
[2019-02-11] MEDS ORDERED: cloNIDine HCL 0.1 MG TABLET PO PRN (10:18)
[2019-02-11] MEDS ORDERED: IBUPROFEN 400 MG TABLET (FP) PO PRN (10:18)
[2019-02-11] MEDS ORDERED: MAGNESIUM HYDROX 2400MG/30ML ORAL SUSPENSION 30 ML CUP PO PRN (10:18)
[2019-02-11] MEDS ORDERED: MAGNESIUM CITRATE 300 ML BOTTLE PO PRN (10:18)
[2019-02-11] MEDS ORDERED: MENTHOL/PHENOL 1 EACH UD MM PRN (10:18)
[2019-02-11] MEDS ORDERED: METHADONE HCL 10 MG TABLET (FOR DETOX USE ONLY) PO ONE (12:00)
[2019-02-11] MEDS: hydrOXYzine PAMOATE 25 MG CAPSULE (FP) PO PRN ×2 (12:22→22:01)
[2019-02-11] MEDS: METHOCARBAMOL 500 MG TABLET PO PRN (12:22)
[2019-02-11 14:20] LABS: HEMATOCRIT 45.6 % (35.4-49); HEMOGLOBIN 14.9 GM/dL (11.7-16.9); MCH 28.2 pg (25.7-33.7); MCHC 32.8 g/dl (32.0-35.9); MEAN PLT VOLUME 10.6 fl (7.5-11.1); PLATELET COUNT 182 K/MM3 (134-434); RDW 13.5 % (11.9-15.9); WHITE BLOOD COUNT 5.6 K/mm3 (4.0-10.0)
[2019-02-11 14:33] LABS: ALBUMIN 3.7 g/dl (3.4-5.0); BILIRUBIN,TOTAL 0.6 mg/dL (0.2-1); BLOOD UREA NITROGEN 14.6 mg/dL (7-18); CALCIUM 8.7 mg/dL (8.5-10.1); CREATININE 0.8 mg/dL (0.55-1.3); POTASSIUM 4.7 mmol/L (3.5-5.1); TOT PROT 7.4 g/dl (6.4-8.2)
[2019-02-11] MEDS: THIAMINE HCL 100 MG TABLET (FP) PO SCH (22:01)
[2019-02-11] MEDS: MELATONIN 5 MG TABLETS PO PRN (22:01)
[2019-02-12] MEDS ORDERED: METHADONE HCL 10 MG TABLET (FOR DETOX USE ONLY) ONE (08:55)
[2019-02-12] MEDS ORDERED: METHADONE HCL 5 MG TABLET (FOR DETOX USE ONLY) ONE (08:55)
[2019-02-12] MEDS ORDERED: METHADONE (DETOX) 20 MG, METHADONE (DETOX) 5 MG PO ONE (10:00)
[2019-02-12] MEDS: PRENATAL VITAMINS W/ FOLIC ACID TABLET (FP) PO SCH (10:16)
[2019-02-12] MEDS: NICOTINE 7 MG/24 HOURS TOPICAL PATCH TD SCH (10:17)
[2019-02-12] MEDS ORDERED: FLU VACCINE QUAD 60 MCG/0.5 ML (MDV 19-20) IM ONE (12:00)
--- NOTE | 2019-02-12 12:55 | PN ---
[facility] COWS - Scale Resting Pulse: 0= [place] 80 or Below Sweatin= Chills/Flushing Restless Observation: 0= Sits Still Pupil Size: 1= Pupils >than Normal Bone or Joint Aches: 1= Mild Discomfort Runny Nose/ Eye Tearin= Nasal Congestion GI Upset > 30mins: 1= Stomach Cramp Tremor Observation of Outstretched Hands: 1= Tremor [place], Not Seen Yawning Observation: 0= None Anxiety or Irritability: 2=Irritable/Anxious Goose Flesh Skin: 3=Piloerection COWS Score: 11 S Progress Note (SOAP) Subjective: 23 years male admitted on 02/11/19 for opiate withdrawal sx management treated with methadone detox regimen patient tolerate well discuss medication assisted treatment program scrap picker narcan from pharmacy Objective: 02/12/19 12:59 Vital Signs Temperature 97.8 F 02/12/19 09:15 Pulse Rate 68 02/12/19 09:15 Respiratory Rate 18 02/12/19 09:15 Blood Pressure 104/67 02/12/19 09:15 O2 Sat by Pulse Oximetry (%) Laboratory Last Values WBC 5.6 K/mm3 (4.0-10.0) 02/11/19 11:10 RBC 5.30 M/mm3 (4.00-5.60) 02/11/19 11:10 Hgb 14.9 GM/dL (11.7-16.9) 02/11/19 11:10 Hct 45.6 % (35.4-49) 02/11/19 11:10 MCV 86.0 fl (80-96) 02/11/19 11:10 MCH 28.2 pg (25.7-33.7) 02/11/19 11:10 MCHC 32.8 g/dl (32.0-35.9) 02/11/19 11:10 RDW 13.5 % (11.9-15.9) 02/11/19 11:10 Plt Count 182 K/MM3 (134-434) 02/11/19 11:10 MPV 10.6 fl (7.5-11.1) 02/11/19 11:10 Sodium 142 mmol/L (136-145) 02/11/19 11:10 Potassium 4.7 mmol/L (3.5-5.1) 02/11/19 11:10 Chloride 107 mmol/L (98-107) 02/11/19 11:10 Carbon Dioxide 29 mmol/L (21-32) 02/11/19 11:10 Anion Gap 6 MMOL/L (8-16) L 02/11/19 11:10 BUN 14.6 mg/dL (7-18) 02/11/19 11:10 Creatinine 0.8 mg/dL (0.55-1.3) 02/11/19 11:10 Est GFR (CKD-EPI)AfAm 145.93 02/11/19 11:10 Est GFR (CKD-EPI)NonAf 125.91 02/11/19 11:10 Random Glucose 87 mg/dL (74-106) 02/11/19 11:10 Calcium 8.7 mg/dL (8.5-10.1) 02/11/19 11:10 Total Bilirubin 0.6 mg/dL (0.2-1) 02/11/19 11:10 AST 17 U/L (15-37) 02/11/19 11:10 ALT 28 U/L (13-61) 02/11/19 11:10 Alkaline Phosphatase 104 U/L (45-117) 02/11/19 11:10 Total Protein 7.4 g/dl (6.4-8.2) 02/11/19 11:10 Albumin 3.7 g/dl (3.4-5.0) 02/11/19 11:10 RPR Titer Nonreactive (NONREACTIVE) 02/11/19 11:10 lab noted Assessment: 02/12/19 12:59 opiate withdrawal sx Plan: continue methadone detox regimen
--- NOTE | 2019-02-12 16:14 | CONSULT ---
[facility] Psychiatric Consult - Data Date of interview: 02/12/19 Admission source: [facility] Identifying data: Readmission to [facility] for this 23 y/o male self- referred for detoxification (FELICIANO issues : heroin, nicotine). Interviewed at [address] [place] [address]. Patient is single, father of one, domiciled and currently employed (self- report). Substance Abuse History: Discussed with patient. Details in current [facility] report as follows : Smoking history: Current every day smoker. Have you smoked in the past 12 months: Yes. Aproximately how many cigarettes per day: 10. Cigars Per Day: 0. Hx Chewing Tobacco Use: No. Initiated information on smoking cessation : Yes. 'Breaking Loose' booklet given: 02/11/19. - Substances abused. Heroin. Substance route: Inhalation. Frequency: Daily. Amount used: 1 bundle. Age of first use: 21. Date of last use: 02/11/19 Medical History: Patient endorses good physical health. Psychiatric History: Patient denies history of psychiatric hospitalizations, OPD care or suicide attempts. Physical/Sexual Abuse/Trauma History: Patient denies. Additional Comment: No toxicology available for review. Mental Status Exam - Mental Status Exam Alert and Oriented to: Time, Place, Person Cognitive Function: Good Patient Appearance: Well Groomed Mood: Hopeful Affect: Appropriate, Normal Range Patient Behavior: Fatigued, Appropriate, Cooperative Speech Pattern: Clear, Appropriate Voice Loudness: Normal Thought Process: Goal Oriented Thought Disorder: Not Present Hallucinations: Denies Suicidal Ideation: Denies Homicidal Ideation: Denies Insight/Judgement: Poor Sleep: Well Appetite: Good Muscle strength/Tone: Normal Gait/Station: Normal Psychiatric Findings - Problem List ([place] 1, 2,3) (1) Opioid dependence with withdrawal Current Visit: Yes Status: Acute (2) Nicotine dependence Current Visit: Yes Status: Chronic Qualifiers: Nicotine product type: cigarettes Substance use status: uncomplicated Qualified Code(s): F17.210 - Nicotine dependence, cigarettes, uncomplicated - Initial Treatment Plan Initial Treatment Plan: Psychoeducation. Sleep hygiene. Detoxification. Support. MAT services offered to the patient. Responded with ambivalence. NA meetings. Observation.
[2019-02-12] MEDS: METHOCARBAMOL 500 MG TABLET PO PRN (22:00)
[2019-02-12] MEDS: MELATONIN 5 MG TABLETS PO PRN (22:00)
[2019-02-12] MEDS: THIAMINE HCL 100 MG TABLET (FP) PO SCH (22:00)
[2019-02-13] MEDS: METHOCARBAMOL 500 MG TABLET PO PRN (09:37)
[2019-02-13] MEDS: PRENATAL VITAMINS W/ FOLIC ACID TABLET (FP) PO SCH (09:37)
[2019-02-13] MEDS: NICOTINE 7 MG/24 HOURS TOPICAL PATCH TD SCH (09:37)
[2019-02-13] MEDS ORDERED: METHADONE HCL 10 MG TABLET (FOR DETOX USE ONLY) PO ONE (10:00)
[2019-02-13] MEDS ORDERED: BACLOFEN 10 MG TABLET (FP) PO PRN (12:12)
--- NOTE | 2019-02-13 12:14 | PN ---
[facility] COWS - Scale Resting Pulse: 0= [place] 80 or Below Sweatin= Chills/Flushing Restless Observation: 0= Sits Still Pupil Size: 1= Pupils >than Normal Bone or Joint Aches: 1= Mild Discomfort Runny Nose/ Eye Tearin= Nasal Congestion GI Upset > 30mins: 1= Stomach Cramp Tremor Observation of Outstretched Hands: 1= Tremor [place], Not Seen Yawning Observation: 1= 1-2x During Session Anxiety or Irritability: 1=Feels Anxious/Irritable Goose Flesh Skin: 0=Smooth Skin COWS Score: 8 BHS Progress Note (SOAP) Subjective: 23 years old male admitted on 02/11/19 for opiate withdrawal sx management treated with methadone detox regimen patient prefers to leave one day early due to feeling better medication assisted treatment program Objective: 02/13/19 12:19 Vital Signs Temperature 97 F L 02/13/19 09:11 Pulse Rate 80 02/13/19 09:11 Respiratory Rate 20 02/13/19 09:11 Blood Pressure 96/69 02/13/19 09:11 O2 Sat by Pulse Oximetry (%) Laboratory Last Values WBC 5.6 K/mm3 (4.0-10.0) 02/11/19 11:10 RBC 5.30 M/mm3 (4.00-5.60) 02/11/19 11:10 Hgb 14.9 GM/dL (11.7-16.9) 02/11/19 11:10 Hct 45.6 % (35.4-49) 02/11/19 11:10 MCV 86.0 fl (80-96) 02/11/19 11:10 MCH 28.2 pg (25.7-33.7) 02/11/19 11:10 MCHC 32.8 g/dl (32.0-35.9) 02/11/19 11:10 RDW 13.5 % (11.9-15.9) 02/11/19 11:10 Plt Count 182 K/MM3 (134-434) 02/11/19 11:10 MPV 10.6 fl (7.5-11.1) 02/11/19 11:10 Sodium 142 mmol/L (136-145) 02/11/19 11:10 Potassium 4.7 mmol/L (3.5-5.1) 02/11/19 11:10 Chloride 107 mmol/L (98-107) 02/11/19 11:10 Carbon Dioxide 29 mmol/L (21-32) 02/11/19 11:10 Anion Gap 6 MMOL/L (8-16) L 02/11/19 11:10 BUN 14.6 mg/dL (7-18) 02/11/19 11:10 Creatinine 0.8 mg/dL (0.55-1.3) 02/11/19 11:10 Est GFR (CKD-EPI)AfAm 145.93 02/11/19 11:10 Est GFR (CKD-EPI)NonAf 125.91 02/11/19 11:10 Random Glucose 87 mg/dL (74-106) 02/11/19 11:10 Calcium 8.7 mg/dL (8.5-10.1) 02/11/19 11:10 Total Bilirubin 0.6 mg/dL (0.2-1) 02/11/19 11:10 AST 17 U/L (15-37) 02/11/19 11:10 ALT 28 U/L (13-61) 02/11/19 11:10 Alkaline Phosphatase 104 U/L (45-117) 02/11/19 11:10 Total Protein 7.4 g/dl (6.4-8.2) 02/11/19 11:10 Albumin 3.7 g/dl (3.4-5.0) 02/11/19 11:10 RPR Titer Nonreactive (NONREACTIVE) 02/11/19 11:10 lab noted Assessment: 02/13/19 12:19 opiate withdrawal sx Plan: continue methadone detox regimen adjust methadone regimen based on patient preference
[2019-02-13] MEDS: THIAMINE HCL 100 MG TABLET (FP) PO SCH (21:44)
[2019-02-13] MEDS: MELATONIN 5 MG TABLETS PO PRN (21:44)
[2019-02-13] MEDS: hydrOXYzine PAMOATE 25 MG CAPSULE (FP) PO PRN (21:44)
[2019-02-14] MEDS: NICOTINE 7 MG/24 HOURS TOPICAL PATCH TD SCH (09:57)
[2019-02-14] MEDS: PRENATAL VITAMINS W/ FOLIC ACID TABLET (FP) PO SCH (09:57)
[2019-02-14] MEDS ORDERED: METHADONE (DETOX) 10 MG, METHADONE (DETOX) 5 MG PO ONE (10:00)
[2019-02-14] MEDS ORDERED: METHADONE HCL 10 MG TABLET (FOR DETOX USE ONLY) PO ONE (10:00)
--- NOTE | 2019-02-14 12:09 | PN ---
[facility] COWS - Scale Resting Pulse: 1= [place] 81-100 Sweatin= No chills or Flushing Restless Observation: 1= Difficult to Sit Still Pupil Size: 1= Pupils >than Normal Bone or Joint Aches: 1= Mild Discomfort Runny Nose/ Eye Tearin= Nasal Congestion GI Upset > 30mins: 1= Stomach Cramp Tremor Observation of Outstretched Hands: 1= Tremor [place], Not Seen Yawning Observation: 1= 1-2x During Session Anxiety or Irritability: 2=Irritable/Anxious Goose Flesh Skin: 0=Smooth Skin COWS Score: 10 S Progress Note (SOAP) Subjective: alert,irritable,anxious,interrupted sleep,pain in the body and back Objective: 02/14/19 12:07 Vital Signs Temperature 97.1 F L 02/14/19 09:21 Pulse Rate 96 H 02/14/19 09:21 Respiratory Rate 18 02/14/19 09:21 Blood Pressure 99/75 02/14/19 09:21 O2 Sat by Pulse Oximetry (%) Assessment: 02/14/19 12:08 withdrawal symptom Plan: continue detox methadone regimen
[2019-02-14] MEDS: MELATONIN 5 MG TABLETS PO PRN (21:40)
[2019-02-14] MEDS: THIAMINE HCL 100 MG TABLET (FP) PO SCH (21:40)
[2019-02-14] MEDS: hydrOXYzine PAMOATE 25 MG CAPSULE (FP) PO PRN (21:41)
[2019-02-15 06:27] VITALS: BP 103/64; PULSE 54; TEMP 96.9
[2019-02-15] MEDS: PRENATAL VITAMINS W/ FOLIC ACID TABLET (FP) PO SCH (09:09)
[2019-02-15] MEDS: NICOTINE 7 MG/24 HOURS TOPICAL PATCH TD SCH (09:09)
--- NOTE | 2019-02-15 09:13 | DS ---
[facility] Detox Discharge Summary Admission Date: 02/11/19 Discharge Date: 02/15/19 - History Present History: Cocaine Dependence, Opioid Dependence, Sedative Dependence Additional Comments: Vital Signs Temperature 96.9 F L 02/15/19 06:26 Pulse Rate 54 L 02/15/19 06:26 Respiratory Rate 18 02/15/19 06:26 Blood Pressure 103/64 02/15/19 06:26 O2 Sat by Pulse Oximetry (%) Laboratory Last Values WBC 5.6 K/mm3 (4.0-10.0) 02/11/19 11:10 RBC 5.30 M/mm3 (4.00-5.60) 02/11/19 11:10 Hgb 14.9 GM/dL (11.7-16.9) 02/11/19 11:10 Hct 45.6 % (35.4-49) 02/11/19 11:10 MCV 86.0 fl (80-96) 02/11/19 11:10 MCH 28.2 pg (25.7-33.7) 02/11/19 11:10 MCHC 32.8 g/dl (32.0-35.9) 02/11/19 11:10 RDW 13.5 % (11.9-15.9) 02/11/19 11:10 Plt Count 182 K/MM3 (134-434) 02/11/19 11:10 MPV 10.6 fl (7.5-11.1) 02/11/19 11:10 Sodium 142 mmol/L (136-145) 02/11/19 11:10 Potassium 4.7 mmol/L (3.5-5.1) 02/11/19 11:10 Chloride 107 mmol/L (98-107) 02/11/19 11:10 Carbon Dioxide 29 mmol/L (21-32) 02/11/19 11:10 Anion Gap 6 MMOL/L (8-16) L 02/11/19 11:10 BUN 14.6 mg/dL (7-18) 02/11/19 11:10 Creatinine 0.8 mg/dL (0.55-1.3) 02/11/19 11:10 Est GFR (CKD-EPI)AfAm 145.93 02/11/19 11:10 Est GFR (CKD-EPI)NonAf 125.91 02/11/19 11:10 Random Glucose 87 mg/dL (74-106) 02/11/19 11:10 Calcium 8.7 mg/dL (8.5-10.1) 02/11/19 11:10 Total Bilirubin 0.6 mg/dL (0.2-1) 02/11/19 11:10 AST 17 U/L (15-37) 02/11/19 11:10 ALT 28 U/L (13-61) 02/11/19 11:10 Alkaline Phosphatase 104 U/L (45-117) 02/11/19 11:10 Total Protein 7.4 g/dl (6.4-8.2) 02/11/19 11:10 Albumin 3.7 g/dl (3.4-5.0) 02/11/19 11:10 RPR Titer Nonreactive (NONREACTIVE) 02/11/19 11:10 patient Aox3 no acute distress No adventitious breath sounds Full ROM no gait disturbance No edema or erythema - Physical Exam Results Vital Signs: Vital Signs Temperature 96.9 F L 02/15/19 06:26 Pulse Rate 54 L 02/15/19 06:26 Respiratory Rate 18 02/15/19 06:26 Blood Pressure 103/64 02/15/19 06:26 O2 Sat by Pulse Oximetry (%) - Treatment Hospital Course: Detox Protocol Followed, Detoxed Safely, Responded well, Discharged Condition Good, Rehab Referral Accepted Patient has Accepted a Rehab Referral to: [facility] - Medication Discharge Medications: Ambulatory Orders Naloxone HCl [Narcan] 4 mg NS ASDIR PRN #1 spray 02/12/19 - Diagnosis (1) Opioid dependence with withdrawal Status: Acute (2) Nicotine dependence Status: Chronic Qualifiers: Nicotine product type: cigarettes Substance use status: uncomplicated Qualified Code(s): F17.210 - Nicotine dependence, cigarettes, uncomplicated (3) Uncomplicated sedative, hypnotic or anxiolytic withdrawal Status: Acute (4) Cocaine dependence Status: Chronic - AMA Did Patient Leave Against Medical Advice: No
[2019-02-15] MEDS ORDERED: METHADONE HCL 10 MG TABLET (FOR DETOX USE ONLY) PO ONE ×2 (10:00)
[2019-02-16] MEDS ORDERED: METHADONE HCL 5 MG TABLET (FOR DETOX USE ONLY) PO ONE (06:00)
== END 2019-02-15 08:32 | disposition home or self-care (01) | DRG 773 ==
LOC: YASAS 09:32 → Y3N 11:16
PROVIDERS: ADMIT Allergy & Immunology; ATTEND Allergy & Immunology
PROC: HZ2ZZZZ Detoxification Services for Substance Abuse Treatment (ICD-10-PCS; principal; 2019-02-11)
DX: F11.23 Opioid dependence with withdrawal (principal); F13.230 Sedative, hypnotic or anxiolytic dependence with withdrawal, uncomplicated; F14.20 Cocaine dependence, uncomplicated; F17.210 Nicotine dependence, cigarettes, uncomplicated; Z88.0 Allergy status to penicillin
CPT/HCPCS: 36415; 80053; 85027; 86593; J0475; Q2036

== ENCOUNTER 2020-03-13 12:51 | Inpatient (IN) | payer OTHER ==
[2020-03-13 13:58] VITALS: BMI 73.5
[2020-03-13] MEDS ORDERED: BISMUTH SUBSALICYLATE 262 MG/15 ML BTL PO PRN (13:58)
[2020-03-13] MEDS ORDERED: MAG HYDROX/AL HYDROX/SIMETH 30 ML UNIT-DOSE CUP PO PRN (13:58)
[2020-03-13] MEDS ORDERED: MAGNESIUM CITRATE 300 ML BOTTLE PO PRN (13:58)
[2020-03-13] MEDS ORDERED: MAGNESIUM HYDROX 2400MG/30ML ORAL SUSPENSION 30 ML CUP PO PRN (13:58)
[2020-03-13] MEDS ORDERED: NICOTINE POLACRILEX 2 MG GUM BUC PRN (13:58)
[2020-03-13] MEDS ORDERED: MENTHOL/PHENOL 1 EACH UD MM PRN (13:58)
[2020-03-13] MEDS ORDERED: ONDANSETRON *ODT* 4 MG TABLET SL PRN (13:58)
[2020-03-13] MEDS ORDERED: ACETAMINOPHEN 325 MG TABLET (FP) PO PRN ×2 (13:58)
[2020-03-13] MEDS ORDERED: METHADONE HCL 10 MG TABLET (FOR DETOX USE ONLY) PO ONE (13:58)
[2020-03-13] MEDS: hydrOXYzine PAMOATE 25 MG CAPSULE (FP) PO SCH ×3 (15:12→22:42)
[2020-03-13] MEDS: PRENATAL VITAMINS W/ FOLIC ACID TABLET (FP) PO SCH (15:12)
[2020-03-13] MEDS: NICOTINE 14 MG/24 HOURS TOPICAL PATCH TD SCH (15:13)
[2020-03-13 17:24] LABS: HEMATOCRIT 46.8 % (35.4-49); MCH 27.7 pg (25.7-33.7); MCHC 32.1 g/dl (32.0-35.9); MEAN CELL VOLUME 86.2 fl (80-96); MEAN PLT VOLUME 10.7 fl (7.5-11.1); PLATELET COUNT 217 K/MM3 (134-434); RBC 5.42 M/mm3 (4.00-5.60); WHITE BLOOD COUNT 8.1 K/mm3 (4.0-10.0)
[2020-03-13 17:27] LABS: POTASSIUM 4.2 mmol/L (3.5-5.1)
[2020-03-13 17:30] LABS: BLOOD UREA NITROGEN 12.8 mg/dL (7-18)
[2020-03-13 17:35] LABS: BILIRUBIN,TOTAL 0.3 mg/dL (0.2-1)
[2020-03-13] MEDS: THIAMINE HCL 100 MG TABLET (FP) PO SCH (22:42)
[2020-03-13] MEDS: MELATONIN 5 MG TABLETS PO SCH (22:42)
[2020-03-14] MEDS: hydrOXYzine PAMOATE 25 MG CAPSULE (FP) PO SCH ×6 (06:23→22:31)
[2020-03-14] MEDS ORDERED: METHADONE HCL 5 MG TABLET (FOR DETOX USE ONLY) ONE (08:53)
[2020-03-14] MEDS ORDERED: METHADONE HCL 10 MG TABLET (FOR DETOX USE ONLY) ONE (08:53)
[2020-03-14] MEDS ORDERED: METHADONE (DETOX) 20 MG, METHADONE (DETOX) 5 MG PO ONE (10:00)
[2020-03-14] MEDS: PRENATAL VITAMINS W/ FOLIC ACID TABLET (FP) PO SCH (10:34)
[2020-03-14] MEDS: NICOTINE 14 MG/24 HOURS TOPICAL PATCH TD SCH (10:35)
[2020-03-14] MEDS: cloNIDine HCL 0.1 MG TABLET PO PRN (18:52)
[2020-03-14] MEDS: THIAMINE HCL 100 MG TABLET (FP) PO SCH (22:31)
[2020-03-14] MEDS: MELATONIN 5 MG TABLETS PO SCH (22:32)
[2020-03-15] MEDS: hydrOXYzine PAMOATE 25 MG CAPSULE (FP) PO SCH ×6 (07:02→22:37)
[2020-03-15] MEDS ORDERED: METHADONE HCL 10 MG TABLET (FOR DETOX USE ONLY) PO ONE (10:00)
[2020-03-15] MEDS: PRENATAL VITAMINS W/ FOLIC ACID TABLET (FP) PO SCH (10:22)
[2020-03-15] MEDS: NICOTINE 14 MG/24 HOURS TOPICAL PATCH TD SCH (10:22)
[2020-03-15] MEDS: cloNIDine HCL 0.1 MG TABLET PO PRN ×2 (14:24→19:10)
[2020-03-15] MEDS: METHOCARBAMOL 500 MG TABLET PO PRN (17:54)
[2020-03-15] MEDS: IBUPROFEN 400 MG TABLET (FP) PO PRN (17:54)
[2020-03-15] MEDS: THIAMINE HCL 100 MG TABLET (FP) PO SCH (22:37)
[2020-03-15] MEDS: MELATONIN 5 MG TABLETS PO SCH (22:37)
[2020-03-16] MEDS: hydrOXYzine PAMOATE 25 MG CAPSULE (FP) PO SCH ×6 (06:33→22:07)
[2020-03-16] MEDS ORDERED: METHADONE (DETOX) 10 MG, METHADONE (DETOX) 5 MG PO ONE (10:00)
[2020-03-16] MEDS ORDERED: METHADONE HCL 5 MG TABLET (FOR DETOX USE ONLY) ONE (10:01)
[2020-03-16] MEDS ORDERED: METHADONE HCL 10 MG TABLET (FOR DETOX USE ONLY) ONE (10:01)
[2020-03-16] MEDS: NICOTINE 14 MG/24 HOURS TOPICAL PATCH TD SCH (10:26)
[2020-03-16] MEDS: PRENATAL VITAMINS W/ FOLIC ACID TABLET (FP) PO SCH (10:26)
[2020-03-16] MEDS ORDERED: METHADONE HCL 10 MG TABLET (FOR DETOX USE ONLY) PO ONE (10:30)
[2020-03-16] MEDS: METHOCARBAMOL 500 MG TABLET PO PRN ×2 (11:53→17:06)
[2020-03-16] MEDS: IBUPROFEN 400 MG TABLET (FP) PO PRN (19:26)
[2020-03-16] MEDS: MELATONIN 5 MG TABLETS PO SCH (22:07)
[2020-03-16] MEDS: THIAMINE HCL 100 MG TABLET (FP) PO SCH (22:07)
[2020-03-17] MEDS: hydrOXYzine PAMOATE 25 MG CAPSULE (FP) PO SCH ×2 (05:48→09:31)
[2020-03-17] MEDS ORDERED: METHADONE HCL 5 MG TABLET (FOR DETOX USE ONLY) PO ONE (06:00)
[2020-03-17 06:23] VITALS: BP 113/63; PULSE 55; TEMP 97.7
[2020-03-17] MEDS: METHOCARBAMOL 500 MG TABLET PO PRN (06:43)
[2020-03-17] MEDS: NICOTINE 14 MG/24 HOURS TOPICAL PATCH TD SCH (09:31)
[2020-03-17] MEDS: PRENATAL VITAMINS W/ FOLIC ACID TABLET (FP) PO SCH (09:31)
[2020-03-17] MEDS ORDERED: METHADONE HCL 10 MG TABLET (FOR DETOX USE ONLY) PO ONE (10:00)
[2020-03-18] MEDS ORDERED: METHADONE HCL 5 MG TABLET (FOR DETOX USE ONLY) PO ONE (06:00)
== END 2020-03-17 08:25 | disposition home or self-care (01) | DRG 773 ==
LOC: YASAS 12:51 → Y3N 14:24
PROVIDERS: ADMIT Allergy & Immunology; ATTEND Allergy & Immunology
PROC: HZ2ZZZZ Detoxification Services for Substance Abuse Treatment (ICD-10-PCS; principal; 2020-03-13)
DX: F11.23 Opioid dependence with withdrawal (principal); F14.20 Cocaine dependence, uncomplicated; F13.20 Sedative, hypnotic or anxiolytic dependence, uncomplicated; F17.210 Nicotine dependence, cigarettes, uncomplicated; F19.24 Other psychoactive substance dependence with psychoactive substance-induced mood disorder; F41.9 Anxiety disorder, unspecified; Z88.0 Allergy status to penicillin
CPT/HCPCS: 36415; 80053; 85027; 86780; C9803; J0735; U0003

== ENCOUNTER 2021-04-15 16:27 | Inpatient (IN) | payer OTHER ==
[2021-04-15 17:19] VITALS: BMI 30.1
[2021-04-15] MEDS ORDERED: ONDANSETRON *ODT* 4 MG TABLET SL PRN (18:22)
[2021-04-15] MEDS ORDERED: MENTHOL/PHENOL 1 EACH UD MM PRN (18:22)
[2021-04-15] MEDS ORDERED: MAGNESIUM CITRATE 300 ML BOTTLE PO PRN (18:22)
[2021-04-15] MEDS ORDERED: NICOTINE 10 MG CARTRIDGE (INHALER) IH PRN (18:22)
[2021-04-15] MEDS ORDERED: ACETAMINOPHEN 325 MG TABLET (FP) PO PRN ×2 (18:22)
[2021-04-15] MEDS ORDERED: MAGNESIUM HYDROX 2400MG/30ML ORAL SUSPENSION 30 ML CUP PO PRN (18:22)
[2021-04-15] MEDS ORDERED: BISMUTH SUBSALICYLATE 524 MG/30 ML PO PRN (18:22)
[2021-04-15] MEDS ORDERED: MAG HYDROX/AL HYDROX/SIMETH 30 ML UNIT-DOSE CUP PO PRN (18:22)
[2021-04-15] MEDS: cloNIDine HCL 0.1 MG TABLET PO PRN (23:07)
[2021-04-15] MEDS: THIAMINE HCL 100 MG TABLET (FP) PO SCH (23:08)
[2021-04-15] MEDS: MELATONIN 5 MG TABLETS PO SCH (23:08)
[2021-04-15] MEDS: hydrOXYzine PAMOATE 25 MG CAPSULE (FP) PO SCH (23:08)
[2021-04-15] MEDS: PRENATAL VITAMINS W/ FOLIC ACID TABLET (FP) PO SCH (23:20)
[2021-04-16] MEDS: hydrOXYzine PAMOATE 25 MG CAPSULE (FP) PO SCH ×5 (06:45→21:47)
[2021-04-16] MEDS ORDERED: methaDONE HCL 10 MG TABLET (FOR DETOX USE ONLY) PO ONE (10:15)
[2021-04-16] MEDS: METHOCARBAMOL 500 MG TABLET PO PRN ×2 (11:19→18:28)
[2021-04-16] MEDS: cloNIDine HCL 0.1 MG TABLET PO PRN (11:19)
[2021-04-16] MEDS: PRENATAL VITAMINS W/ FOLIC ACID TABLET (FP) PO SCH (11:19)
[2021-04-16] MEDS: MELATONIN 5 MG TABLETS PO SCH (21:47)
[2021-04-16] MEDS: THIAMINE HCL 100 MG TABLET (FP) PO SCH (21:47)
[2021-04-17] MEDS: hydrOXYzine PAMOATE 25 MG CAPSULE (FP) PO SCH ×5 (06:12→23:49)
[2021-04-17] MEDS ORDERED: methaDONE HCL 10 MG TABLET (FOR DETOX USE ONLY) ONE (08:56)
[2021-04-17] MEDS: METHOCARBAMOL 500 MG TABLET PO PRN ×2 (09:00→17:38)
[2021-04-17] MEDS: PRENATAL VITAMINS W/ FOLIC ACID TABLET (FP) PO SCH (09:00)
[2021-04-17] MEDS: cloNIDine HCL 0.1 MG TABLET PO PRN ×2 (14:14→23:50)
[2021-04-17] MEDS: THIAMINE HCL 100 MG TABLET (FP) PO SCH (23:49)
[2021-04-17] MEDS: MELATONIN 5 MG TABLETS PO SCH (23:49)
[2021-04-18] MEDS: hydrOXYzine PAMOATE 25 MG CAPSULE (FP) PO SCH ×5 (06:30→22:11)
[2021-04-18] MEDS: PRENATAL VITAMINS W/ FOLIC ACID TABLET (FP) PO SCH (09:44)
[2021-04-18] MEDS: METHOCARBAMOL 500 MG TABLET PO PRN (09:44)
[2021-04-18] MEDS: cloNIDine HCL 0.1 MG TABLET PO PRN (09:44)
[2021-04-18] MEDS ORDERED: methaDONE HCL 10 MG TABLET (FOR DETOX USE ONLY) PO ONE (10:00)
[2021-04-18] MEDS: IBUPROFEN 400 MG TABLET (FP) PO PRN (19:14)
[2021-04-18] MEDS: THIAMINE HCL 100 MG TABLET (FP) PO SCH (22:11)
[2021-04-18] MEDS: MELATONIN 5 MG TABLETS PO SCH (22:11)
[2021-04-19] MEDS: hydrOXYzine PAMOATE 25 MG CAPSULE (FP) PO SCH ×5 (06:18→22:30)
[2021-04-19] MEDS: METHOCARBAMOL 500 MG TABLET PO PRN ×2 (06:25→19:13)
[2021-04-19] MEDS: IBUPROFEN 400 MG TABLET (FP) PO PRN ×2 (06:30→19:13)
[2021-04-19] MEDS ORDERED: methaDONE HCL 10 MG TABLET (FOR DETOX USE ONLY) ONE (09:57)
[2021-04-19] MEDS: PRENATAL VITAMINS W/ FOLIC ACID TABLET (FP) PO SCH (10:57)
[2021-04-19] MEDS: LIDOCAINE 5% TOPICAL PATCH TP SCH (10:57)
[2021-04-19 11:13] LABS: HEMATOCRIT 44.8 % (35.4-49); HEMOGLOBIN 14.6 GM/dL (11.7-16.9); MCH 28.2 pg (25.7-33.7); MCHC 32.7 g/dl (32.0-35.9); MEAN CELL VOLUME 86.2 fl (80-96); MEAN PLT VOLUME 10.7 fl (7.5-11.1); PLATELET COUNT 186 10^3/uL (134-434); RDW 14.3 % (11.9-15.9); WHITE BLOOD COUNT 5.1 K/mm3 (4.0-10.0)
[2021-04-19 11:28] LABS: BLOOD UREA NITROGEN 18.6 mg/dL (7-18); CALCIUM 8.8 mg/dL (8.5-10.1)
[2021-04-19 11:29] LABS: ALBUMIN 3.5 g/dl (3.4-5.0)
[2021-04-19 11:32] LABS: BILIRUBIN,TOTAL 0.9 mg/dL (0.2-1); TOT PROT 6.9 g/dl (6.4-8.2)
[2021-04-19] MEDS: THIAMINE HCL 100 MG TABLET (FP) PO SCH (22:30)
[2021-04-19] MEDS: MELATONIN 5 MG TABLETS PO SCH (22:30)
[2021-04-19] MEDS: LIDOCAINE PATCH REMOVAL MC SCH (22:30)
[2021-04-20] MEDS: hydrOXYzine PAMOATE 25 MG CAPSULE (FP) PO SCH ×5 (05:56→22:42)
[2021-04-20] MEDS: METHOCARBAMOL 500 MG TABLET PO PRN ×2 (06:05→22:44)
[2021-04-20] MEDS ORDERED: methaDONE HCL 10 MG TABLET (FOR DETOX USE ONLY) PO ONE (10:00)
[2021-04-20] MEDS: LIDOCAINE 5% TOPICAL PATCH TP SCH (10:45)
[2021-04-20] MEDS: PRENATAL VITAMINS W/ FOLIC ACID TABLET (FP) PO SCH (10:45)
[2021-04-20] MEDS: cloNIDine HCL 0.1 MG TABLET PO PRN (18:06)
[2021-04-20] MEDS: LIDOCAINE PATCH REMOVAL MC SCH (22:42)
[2021-04-20] MEDS: THIAMINE HCL 100 MG TABLET (FP) PO SCH (22:42)
[2021-04-20] MEDS: MELATONIN 5 MG TABLETS PO SCH (22:42)
[2021-04-21] MEDS: hydrOXYzine PAMOATE 25 MG CAPSULE (FP) PO SCH ×4 (05:19→18:07)
[2021-04-21] MEDS: METHOCARBAMOL 500 MG TABLET PO PRN ×2 (05:20→18:06)
[2021-04-21] MEDS: LIDOCAINE 5% TOPICAL PATCH TP SCH (11:12)
[2021-04-21] MEDS: PRENATAL VITAMINS W/ FOLIC ACID TABLET (FP) PO SCH (11:12)
[2021-04-21] MEDS: THIAMINE HCL 100 MG TABLET (FP) PO SCH (23:16)
[2021-04-21] MEDS: MELATONIN 5 MG TABLETS PO SCH (23:17)
[2021-04-21] MEDS: LIDOCAINE PATCH REMOVAL MC SCH (23:17)
[2021-04-22] MEDS: LIDOCAINE 5% TOPICAL PATCH TP SCH (10:44)
[2021-04-22] MEDS: PRENATAL VITAMINS W/ FOLIC ACID TABLET (FP) PO SCH (10:44)
[2021-04-22] MEDS: cloNIDine HCL 0.1 MG TABLET PO PRN (10:49)
[2021-04-22] MEDS: MELATONIN 5 MG TABLETS PO SCH (22:12)
[2021-04-22] MEDS: IBUPROFEN 400 MG TABLET (FP) PO PRN (22:12)
[2021-04-22] MEDS: LIDOCAINE PATCH REMOVAL MC SCH (22:12)
[2021-04-22] MEDS: THIAMINE HCL 100 MG TABLET (FP) PO SCH (22:12)
[2021-04-23] MEDS: PRENATAL VITAMINS W/ FOLIC ACID TABLET (FP) PO SCH (10:37)
[2021-04-23] MEDS: LIDOCAINE 5% TOPICAL PATCH TP SCH (10:37)
[2021-04-23] MEDS: cloNIDine HCL 0.1 MG TABLET PO PRN (18:20)
[2021-04-23] MEDS: IBUPROFEN 400 MG TABLET (FP) PO PRN (18:30)
[2021-04-23] MEDS: MELATONIN 5 MG TABLETS PO SCH (21:51)
[2021-04-23] MEDS: LIDOCAINE PATCH REMOVAL MC SCH (21:51)
[2021-04-23] MEDS: THIAMINE HCL 100 MG TABLET (FP) PO SCH (21:51)
[2021-04-24 06:14] VITALS: BP 139/93; PULSE 81; TEMP 97.2
[2021-04-24] MEDS: PRENATAL VITAMINS W/ FOLIC ACID TABLET (FP) PO SCH (11:10)
== END 2021-04-24 10:05 | disposition home or self-care (01) | DRG 773 ==
LOC: YASAS 16:27 → Y6N 20:26
PROVIDERS: ADMIT Allergy & Immunology; ATTEND Allergy & Immunology
PROC: HZ2ZZZZ Detoxification Services for Substance Abuse Treatment (ICD-10-PCS; principal; 2021-04-15)
DX: F11.23 Opioid dependence with withdrawal (principal); F14.20 Cocaine dependence, uncomplicated; F17.210 Nicotine dependence, cigarettes, uncomplicated; F19.24 Other psychoactive substance dependence with psychoactive substance-induced mood disorder; F41.9 Anxiety disorder, unspecified; F32.A Depression, unspecified; U07.1 COVID-19; M54.50 Low back pain, unspecified; Z59.02 Unsheltered homelessness; Z56.0 Unemployment, unspecified; Z88.0 Allergy status to penicillin
CPT/HCPCS: 36415; 80053; 85027; 86780; C9803; J0735; U0003; U0005